=== PATIENT | male | born 1975 | race Caucasian/White ===

== ENCOUNTER → 2016-07-20 | Outpatient (CLI) | payer OTHER ==
--- NOTE | 2016-07-20 13:46 | RAD ---
Bilateral lower extremity venous ultrasound, 07/20/2016: History: Right leg swelling Duplex evaluation of the deep veins in the lower extremities was performed including grayscale, color-flow and spectral Doppler analysis. On the left the femoral and popliteal veins demonstrate normal compressibility and normal responses to distal augmentation maneuvers. Color imaging of those vessels shows no evidence of intraluminal clot. On the right, the common femoral vein is patent. The femoral vein in the mid thigh is less well delineated, due to scanning difficulties related to overlying skin changes. That vessel is patent. The right popliteal vein is unremarkable. The visualized deep veins in both calves are patent. Mildly prominent lymph nodes are noted at the right groin level and in the upper thigh. The largest node lies at the upper thigh level and measures 43 x 17 mm. IMPRESSION: 1. No sonographic evidence of deep vein thrombosis in either lower extremity, although a segment of the right femoral vein in the mid thigh was suboptimally visualized as described above. 2. Mild adenopathy at the right upper thigh level.
== END | disposition home or self-care (01) ==
LOC: US 09:56
PROVIDERS: ATTEND Family Medicine
DX: Z00.01 Encounter for general adult medical examination with abnormal findings (principal); I87.2 Venous insufficiency (chronic) (peripheral); B99.9 Unspecified infectious disease; L03.115 Cellulitis of right lower limb; R06.89 Other abnormalities of breathing; I10 Essential (primary) hypertension; M79.89 Other specified soft tissue disorders
CPT/HCPCS: 93971

== ENCOUNTER → 2017-06-27 | Outpatient (CLI) | payer OTHER ==
[2017-06-27 11:06] LABS: BASO % 0 % (0-3); EOS % 0 % (0-3); HEMATOCRIT 37.3 % (39.0-53.0); HEMOGLOBIN 12.2 g/dL (13.0-17.5); LYMPH # 0.8 x10^3/uL (1.0-4.8); LYMPH % 5 % (24-48); MEAN CORPUSCULAR HEMOGLOBIN 24 pg (25-35); MEAN CORPUSCULAR HGB CONC 33 g/dL (31-37); MEAN CORPUSCULAR VOLUME 72 fL (79-100); MONO # 0.3 x10^3/uL (0.0-1.1); MONO % 2 % (0-9); NEUT # 13.4 x10^3uL (1.8-7.7); NEUT % 92 % (31-73); PLATELET COUNT 204 x10^3/uL (140-400); RED BLOOD COUNT 5.15 x10^6/uL (4.30-5.70); RED CELL DISTRIBUTION WIDTH 15.6 % (11.5-14.5); WHITE BLOOD COUNT 14.6 x10^3/uL (4.0-11.0)
[2017-06-27 11:46] LABS: ALBUMIN 3.5 g/dL (3.4-5.0); ALBUMIN/GLOBULIN RATIO 0.7 (1.0-1.7); CALCIUM 8.7 mg/dL (8.5-10.1); GFR 82.8; POTASSIUM 3.7 mmol/L (3.5-5.1); TOTAL BILIRUBIN 1.9 mg/dL (0.2-1.0); TOTAL PROTEIN 8.3 g/dL (6.4-8.2)
== END | disposition home or self-care (01) ==
LOC: LAB 10:25
PROVIDERS: ATTEND Physician Assistant
DX: L03.115 Cellulitis of right lower limb (principal)
CPT/HCPCS: 36415; 80053; 85025; 87040

== ENCOUNTER → 2019-06-13 | Outpatient (CLI) | payer OTHER ==
--- NOTE | 2019-06-13 13:10 | RAD ---
Examination: VENOUS LOWER EXTREMITY RIGHT History: Right lower extremity swelling Comparison/Correlation: None Findings: Left lower extremity venous duplex ultrasound exam was performed. Compression and augmentation are utilized. Common femoral vein, superficial femoral vein, popliteal vein, and greater saphenous venous junction are normal with no thrombus identified. Calf veins are not visualized due to significant lower extremity swelling. Impression: No right lower extremity DVT identified. Calf veins are not visualized due to significant swelling. Electronically signed by: Doug Whittaker MD (06/13/2019 1:07 PM) [id number]
== END | disposition home or self-care (01) ==
LOC: US 12:05
PROVIDERS: ATTEND Family Medicine
DX: M79.89 Other specified soft tissue disorders (principal); L03.115 Cellulitis of right lower limb
CPT/HCPCS: 93971